=== PATIENT | female | born 1950 | race Asian ===

== ENCOUNTER 2022-06-01 06:41 | Day surgery (SDC) | payer MEDICARE ==
[~2022-06-01] VITALS: Ht 149.9 cm; Wt 58.2 kg
[2022-06-01] VITALS (8 sets, daily range): BP systolic 122–144; BP diastolic 51–85
[2022-06-01] MEDS ORDERED: AMLO-708 PO (07:04)
[2022-06-01] MEDS ORDERED: ATOR10TA70 PO (07:04)
[2022-06-01] MEDS ORDERED: LEVO75TA7 PO (07:04)
[2022-06-01] MEDS ORDERED: MIDAZolam 1 MG/ML 5ML VIAL ONE (07:06)
[2022-06-01] MEDS ORDERED: FENTANYL CITRATE/PF 50 MCG/1 ML VIAL ONE (07:06)
== END 2022-06-01 08:52 | disposition home or self-care (01) ==
LOC: GI LAB 06:41
PROVIDERS: ATTEND Internal Medicine Gastroenterology
DX: Z12.11 Encounter for screening for malignant neoplasm of colon (principal); K58.9 Irritable bowel syndrome, unspecified; K63.89 Other specified diseases of intestine
CPT/HCPCS: 45380; 99153; G0500; J2250; J3010; J7030; Z7512; 88305; 99152; A4620